=== PATIENT | female | born 1975 | race African-American/Black ===

== ENCOUNTER 2017-05-02 10:14 | Emergency (ER) | payer MEDICAID, OTHER ==
--- NOTE | 2017-05-02 10:23 | ER Document Report ---
ED Blood Sugar Problem <AHMET PERALTA - Last Filed: 05/02/17 14:32> - General Mode of Arrival: Ambulatory Information source: Patient <FERNANDOSACHIN - Last Filed: 05/02/17 14:55> - General Stated Complaint: BLOOD SUGAR PROBLEMS Time Seen by Provider: 05/02/17 10:22 Notes: Patient is a 42 year old female that presents to the emergency department today with complaints of being unresponsive. Family at bedside states that the patient just got here yesterday from [place] on vacation. Family states that she took her medications are prescribed last night. EMS states on arrival the patient had a BGL of 15 and after glucagon the BGL mckenzie to 29 after arrival here. (SACHIN KING) - Related Data Allergies/Adverse Reactions: No Known Allergies Allergy (Verified 05/02/17 10:39) Past Medical History - General Information source: Relative, [facility] Records - Social History Smoking Status: Current Every Day Smoker Cigarette use (# per day): Yes Frequency of alcohol use: None Drug Abuse: None Lives with: Family Family History: Reviewed & Not Pertinent - Past Medical History Cardiac Medical History: Reports: Hx Hypercholesterolemia, Hx Hypertension Pulmonary Medical History: Reports: Hx Asthma Neurological Medical History: Reports: Hx Migraine, Hx Seizures GI Medical History: Reports: Hx Gastroesophageal Reflux Disease, Hx Hiatal Hernia, Hx Irritable Bowel, Other - Hx pancreatitis Musculoskeltal Medical History: Reports Hx Arthritis Psychiatric Medical History: Reports: Hx Anxiety, Hx Bipolar Disorder, Hx Depression, Hx Schizophrenia Past Surgical History: Reports: Hx Abdominal Surgery - 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, Hx Section - X4, Hx Cholecystectomy, Hx Tubal Ligation - Immunizations Hx Diphtheria, Pertussis, Tetanus Vaccination: No Hx Pneumococcal Vaccination: 07/28/12 <SACHIN KING - Last Filed: 05/02/17 14:55> Review of Systems - Review of Systems -: Yes ROS unobtainable due to patient's medical condition <SACHIN KING - Last Filed: 05/02/17 14:55> Physical Exam <AHMET PERALTA - Last Filed: 05/02/17 14:32> <SACHIN KING - Last Filed: 05/02/17 14:55> - Vital signs Vitals: Resp Pulse Ox 16 100 05/02/17 10:29 05/02/17 10:29 - Notes Notes: Physical Exam: General: Initially essentially unresponsive, shivering. HEENT: Normocephalic. Atraumatic. PERRL. Extraocular movements intact. Oropharynx clear. Neck: Supple. Non-tender. Respiratory: No respiratory distress. Clear and equal breath sounds bilaterally. Cardiovascular: Regular rate and rhythm. Abdominal: Normal Inspection. Non-tender. No distension. Normal Bowel Sounds. Back: Non-tender. No deformity or step off. Extremities: Moves all four extremities. Upper extremities: Normal inspection. Normal ROM. Lower extremities: Normal inspection. No edema. Normal ROM. Neurological: Unresponsive on arrival, towards the end of the exam the patient is able to answer simple yes or no questions. Psychological: Unable to assess. Skin: Cool to the touch. Dry. Normal color. (SACHIN KING) Course - Laboratory Result Diagrams: 05/02/17 10:24 05/02/17 10:24 - EKG Interpretation by [place] EKG shows normal: Sinus rhythm, [place], QRS Complexes, ST-T Waves. abnormal: Intervals - Prolonged QT interval Rate: Normal - 80 Rhythm: NSR Voltage: Consistant with LVH When compared to previous EKG there are: Changes noted - Last EKG for comparison was in November 2012 and it was normal at that time other than a slight tachycardia. <AHMET PERALTA - Last Filed: 05/02/17 14:32> - Laboratory Result Diagrams: 05/02/17 10:24 05/02/17 10:24 <SACHIN KING - Last Filed: 05/02/17 14:55> - Re-evaluation Re-evalutation: 05/02/17 11:35 The patient had begun to wake up some after the D50W. At this time she is snoring and but is arousable. We will repeat her Accu-Chek. 05/02/17 11:57 Repeat Accu-Chek is 195. 05/02/17 12:01 Reviewing her lab work and comparing it to 2013, it shows she has a chronic iron deficiency anemia, seems to have a leukocytosis regularly, and has elevated alkaline phosphatase. The lab work today other than the glucose issues does not appear to be appreciably different than it was 4 years ago when she used to live in this area. 05/02/17 14:00 At this time the patient is wide awake, she has been eating. She is smiling. As we are discussing her discharge plan, she requested pain medication for her chronic abdominal pain related to her chronic pancreatitis. I informed her that we do not do chronic pain management here and we do not prescribe for chronic pain. She will receive a dose of pain medication here in the emergency room but no prescriptions. 05/02/17 14:32 The patient specifically has asked for morphine, and states she has had "a million times". The nurse reports the patient developed some redness around the injection area and some itching. This reaction seemed to develop after the IV had been removed. She will be given an oral dose of Pepcid and Benadryl prior to discharge. (AHMET PERALTA) - Vital Signs Vital signs: Temp Pulse Resp BP Pulse Ox 17 162/90 H 100 05/02/17 11:01 05/02/17 11:01 05/02/17 11:01 - Laboratory Laboratory results interpreted by me: 05/02/17 05/02/17 05/02/17 10:24 10:24 11:38 WBC 14.3 H Hgb 9.4 L Hct 28.7 L MCV 72 L MCH 23.5 L RDW 22.1 H Seg Neutrophils % 90.3 H Lymphocytes % 6.5 L Monocytes % 2.9 L Absolute Neutrophils 12.9 H Sodium 148.2 H Potassium 3.1 L Chloride 110 H Glucose 65 L POC Glucose 195 H AST 53 H Alkaline Phosphatase 423 H Total Protein 8.4 H Urine Glucose (UA) Urine Blood Ur Leukocyte Esterase 05/02/17 12:40 WBC Hgb Hct MCV MCH RDW Seg Neutrophils % Lymphocytes % Monocytes % Absolute Neutrophils Sodium Potassium Chloride Glucose POC Glucose AST Alkaline Phosphatase Total Protein Urine Glucose (UA) 150 H Urine Blood SMALL H Ur Leukocyte Esterase MODERATE H Critical Care Note - Critical Care Note Total time excluding time spent on procedures (mins): 30 <AHMET PERALTA - Last Filed: 05/02/17 14:32> Discharge <AHMET PERALTA - Last Filed: 05/02/17 14:32> <SACHIN KING - Last Filed: 05/02/17 14:55> - Discharge Clinical Impression: Hypoglycemia, Hypokalemia, Chronic abdominal pain Condition: Stable Disposition: HOME, SELF-CARE Additional Instructions: Hypoglycemia You have suffered an episode of hypoglycemia (low blood sugar). Typical symptoms of hypoglycemia are shaking, sweating, headache, and confusion. When severe, unconsciousness or seizure may occur. Hypoglycemia occurs when a person taking insulin or diabetes pills has a change in the amount of blood sugar available -- due to exercise, decreased food intake, or alcohol. Should you feel symptoms of hypoglycemia again, immediately take some form of sugar such as sweetened juice. As the reaction subsides, eat a complex carbohydrate such as bread. If possible, check your blood sugar using a chemical strip. If episodes are occurring without obvious explanation, contact your physician for further evaluation. Be sure to check your blood sugars before you go to bed and eat something if the sugars are trending down. Be sure to take your regular medications when you get home. Follow-up with a local medical doctor if you are going to stay in this area for any length of time. RETURN TO THE EMERGENCY ROOM IF ANY NEW OR WORSENING SYMPTOMS. Forms: Parent Work Note, Return to Work Scribe Attestation: 05/02/17 14:02 I personally performed the services described in the documentation, reviewed and edited the documentation which was dictated to the scribe in my presence, and it accurately records my words and actions. (AHMET PERALTA) Scribe Documentation - Scribe Written by Nate:: Nate Aguirre, 05/02/2017 1455 acting as scribe for :: Charleen <SACHIN KING - Last Filed: 05/02/17 14:55>
[2017-05-02] MEDS ORDERED: DEXTROSE 50%-WATER 25 GM/50 ML DISP.SYRIN IV ONE (10:25)
[2017-05-02 10:38] LABS: ABSOLUTE LYMPHOCYTES (AUTO) 0.9 10^3/uL (0.5-4.7); ABSOLUTE MONOCYTES (AUTO) 0.4 10^3/uL (0.1-1.4); ABSOLUTE NEUT (AUTO) 12.9 10^3/uL (1.7-8.2); BASOPHILS % (AUTO) 0.2 % (0-2); EOSINOPHILS % (AUTO) 0.1 % (0-6); HEMATOCRIT 28.7 % (36.0-47.0); HEMOGLOBIN 9.4 g/dL (12.0-15.5); HGB HCT DIFFERENCE -0.5; LYMPHOCYTES % (AUTO) 6.5 % (13-45); MEAN CORPUSCULAR HEMOGLOBIN 23.5 pg (27.0-33.4); MEAN CORPUSCULAR HGB CONC 32.6 g/dL (32.0-36.0); MEAN CORPUSCULAR VOLUME 72 fl (80-97); MONOCYTES % (AUTO) 2.9 % (3-13); RED BLOOD COUNT 3.99 10^6/uL (3.72-5.28); RED CELL DISTRIBUTION WIDTH 22.1 % (11.5-14.0); SEGMENTED NEUTROPHILS % (AUTO) 90.3 % (42-78); WHITE BLOOD COUNT 14.3 10^3/uL (4.0-10.5)
[2017-05-02] MEDS ORDERED: DEXTROSE 40% GEL 15 GM TUBE ONE (10:43)
[2017-05-02 10:57] LABS: BLOOD UREA NITROGEN 8 mg/dL (7-20); CALCIUM 9.1 mg/dL (8.4-10.2); CREATININE RESULT 0.81 mg/dL (0.52-1.25); GLUCOSE 65 mg/dL (75-110)
[2017-05-02 10:58] LABS: ALANINE AMINOTRANSFERASE 30 U/L (9-52); ALBUMIN 4.3 g/dL (3.5-5.0); ALKALINE PHOSPHATASE 423 U/L (38-126); ANION GAP 13 (5-19); ASPARTATE AMINO TRANSFERASE 53 U/L (14-36); BILIRUBIN,DIRECT 0.4 mg/dL (0.0-0.4); BILIRUBIN,TOTAL 0.4 mg/dL (0.2-1.3); CARBON DIOXIDE 25 mmol/L (22-30); CHLORIDE 110 mmol/L (98-107); CREATINE KINASE 91 U/L (30-135); SODIUM 148.2 mmol/L (137-145); TOTAL PROTEIN 8.4 g/dL (6.3-8.2)
--- NOTE | 2017-05-02 11:18 | EKG REPORT ---
SEVERITY:- ABNORMAL ECG - SINUS RHYTHM CONSIDER LEFT VENTRICULAR HYPERTROPHY PROLONGED QT INTERVAL : Confirmed by: Estephania Aguilar MD 02-May-2017 11:16:47
[2017-05-02 11:22] LABS: POTASSIUM 3.1 mmol/L (3.6-5.0)
[2017-05-02] MEDS ORDERED: POTASSIUM CHLORIDE 10 MEQ TABLET.SA PO ONE (11:53)
[2017-05-02 12:57] LABS: APPEARANCE,URINE CLOUDY; BILIRUBIN,URINE NEGATIVE (NEGATIVE); GLUCOSE, URINE 150 mg/dL (NEGATIVE); KETONES,URINE NEGATIVE (NEGATIVE); LEUKOCYTE ESTERASE,URINE MODERATE (NEGATIVE); NITRITE,URINE NEGATIVE (NEGATIVE); PROTEIN,URINE NEGATIVE (NEGATIVE); URINE SPECIFIC GRAVITY 1.006; UROBILINOGEN,URINE NEGATIVE mg/dL (<2.0)
[2017-05-02] MEDS ORDERED: MORPHINE SULFATE 10 MG/ML INJ IV ONE (14:03)
[2017-05-02] MEDS ORDERED: FAMOTIDINE 20 MG TABLET PO ONE (14:31)
[2017-05-02] MEDS ORDERED: DIPHENHYDRAMINE HCL 25 MG CAPSULE PO ONE (14:31)
[2017-05-02 14:43] VITALS: BP 169/108
== END 2017-05-02 14:43 | disposition home or self-care (01) ==
LOC: ER 10:14
DX: E87.6 Hypokalemia (principal); E11.649 Type 2 diabetes mellitus with hypoglycemia without coma; R10.9 Unspecified abdominal pain; G89.29 Other chronic pain; R41.82 Altered mental status, unspecified; F17.210 Nicotine dependence, cigarettes, uncomplicated
CPT/HCPCS: 93005; 99285; 96374; 96375; 36415; 82962; 82550; 85025; 80053; 81001; 84484; 93010; J3490; J2270